=== PATIENT | female | born 1945 | race Caucasian/White ===

== ENCOUNTER 2017-04-18 12:10 | Emergency (ER) | payer MEDICARE, OTHER ==
[2017-04-18] MEDS ORDERED: NS 0.9% 1000 ML* 1,000 ML IV SCH (12:45)
[2017-04-18 12:56] LABS: Hematocrit 39 % (35-47); Hemoglobin 13.3 g/dl (12.0-16.0); Mean Corpuscular HGB Conc 34 g/dl (31-36); Mean Corpuscular Hemoglobin 33 pg (27-31); Mean Corpuscular Volume 97 fL (80-97); Mean Platelet Volume 8 um3 (7.4-10.4); Red Blood Count 4.01 10^6/ul (4.0-5.4); Red Cell Distribution Width 14 % (10.5-15); White Blood Count 6.7 10^3/ul (3.5-10.8)
[2017-04-18 13:12] LABS: Albumin 3.8 g/dL (3.2-5.2); BUN/Creatinine Ratio 12.6 (8-20); C Reactive Protein 3.56 mg/L (< 5.00); Calcium 9.1 mg/dL (8.6-10.3); EGFR African American 67.9 (>60); EGFR Non-African American 52.8 (>60); Globulin 2.8 g/dL (2-4); Magnesium 1.8 mg/dL (1.9-2.7); Potassium 3.6 mmol/L (3.5-5.0); Total Bilirubin 0.5 mg/dL (0.2-1.0); Total Protein 6.6 g/dL (6.4-8.9)
[2017-04-18 13:27] LABS: Urine Bilirubin Negative (Negative); Urine Glucose Negative (Negative); Urine Nitrite Negative (Negative)
--- NOTE | 2017-04-18 13:27 | RAD ---
Indication: Chest pain. Single frontal view of the chest performed at 1253 hours was reviewed. No prior study is available. No mediastinal shift is noted. Heart is of normal size and configuration. Lung siddiqi appear clear. IMPRESSION: NO ACTIVE CARDIOPULMONARY DISEASE IS NOTED.
[2017-04-18] MEDS ORDERED: Aspirin Low Dose CHEW TAB* 81 MG PO ONE (14:00)
[2017-04-18 14:07] LABS: TSH (Thyroid Stimulating Horm) 0.95 mcIU/mL (0.34-5.60)
[2017-04-18] MEDS ORDERED: Albuterol/Ipratropium NEB.SOL* Albuterol 2.5 MG/Ipratropium 0.5 MG 3 ML INH ONE (14:11)
[2017-04-18] MEDS ORDERED: Aspirin TAB* 325 MG PO ONE (14:11)
[2017-04-18] MEDS ORDERED: Magnesium Sulfate 2 GM IV* 2 GM/50 ML BAG IVPB ONE (14:14)
[2017-04-18] MEDS ORDERED: Potassium Chlor TAB* 20 MEQ TAB.ER PO ONE (14:14)
--- NOTE | 2017-04-18 16:03 | ED ---
Tuan Lugo Auryana, scribed for Nichole Valdes MD on 04/18/17 at 1402 . HPI Chest Pain - HPI Summary HPI Summary: 72 year old female chest heaviness starting this morning around 8/9 AM. The pain is located at the center of the chest, and also under the right breast. The chest heaviness is constant but is intermittently worse at a 2/10. She also reports dyspnea - states "not getting enough air", and reports mild dizziness. She denies any recent long travel or any surgeries. She denies any previous episodes. Patient states that she is experiencing increasing stress at home with taking care of her who had a stroke - worried the stress may be affecting her heart. Her sister does state that she has seemed "stuffed up" - patient agrees. She reports that she has had reflux before but this does not feel the same. She does report that with the Celebrex she had abdominal pain- reports occasional pain with empty stomach - none today or related to current issue. STRIKER OFF baby ASA. PMHx is significant for HLD, HTN, fibromylagia, vertigo, squamous cell skin cancer, depression, and panic attacks. No history of any lung problems or GERD. FHx is not significant for any history of early MS, or DVT/PE. SHx is significant for alcohol (about 3 beers/day) , but denies any tobacco use currently - former smoker. She is currently retired and lives with . PCP is Dr. Ni. - History of Current Complaint Chief Complaint: EDChestPainROMI Time Seen by Provider: 04/18/17 13:46 Hx Obtained From: Patient Onset/Duration: Started Hours Ago Time of Onset: 08:00 Timing: Constant, Intermittent - worse Initial Severity: Mild Current Severity: Mild Pain Intensity: 0 Pain Scale Used: 0-10 Numeric Chest Pain Location: Discrete at: - center chest and under the right breast Chest Pain Radiates: No Character: Heaviness Associated Signs and Symptoms: Positive: Chest Pain - heaviness, Dizziness, Shortness of Breath - dyspnea - Allergy/Home Medications Allergies/Adverse Reactions: Allergies Allergy/AdvReac Type Severity Reaction Status Date / Time Sulfa Antibiotics Allergy Unknown Verified 04/18/17 12:32 Reaction Details PMH/Surg Hx/FS Hx/Imm Hx Musculoskeletal History: Denies: Hx Scoliosis Neurological History: Denies: Hx Headaches Infectious Disease History: No Infectious Disease History: Denies: Traveled Outside the [place] in Last 30 Days - Family History Known Family History: Positive: Other - no history of early MS or DVT/PE - Social History Occupation: Retired Lives: With Family - Alcohol Use: Daily Alcohol Amount: 1-2 beers Substance Use Type: Reports: None Smoking Status (MU): Never Smoked Tobacco Review of Systems Positive: Other - dizziness. Negative: Fever Eyes: Negative ENT: Negative Positive: Chest Pain - heaviness Positive: Shortness Of Breath - dyspnea Gastrointestinal: Negative Genitourinary: Negative Positive: no symptoms reported Musculoskeletal: Negative Skin: Negative Neurological: Negative Psychological: Normal All Other Systems Reviewed And Are Negative: Yes Physical Exam - Summary Physical Exam Summary: General: Well appearing, no pain distress Skin: Warm, Skin Color Reflects Adequate Perfusion, Dry Eyes: EOMI, YUN ENT: Pharynx normal, TMs normal Neck: Supple, nontender Respiratory: CTA, breath sounds present, no rhonchi, no wheezes, no rales Cardiovascular: RRR, no murmur, no rub, no gallop Abdomen: Soft, nontender, Non-distended, no guarding, no rebound Bowel: Present Musculoskeletal: JONO, No edema Neuro: Sensory/motor intact, A&Ox3, CN intact 2-12 Psych: Affect/mood appropriate Triage Information Reviewed: Yes Vital Signs On Initial Exam: Initial Vitals Temp Pulse Resp BP Pulse Ox 97.8 F 65 16 166/97 98 04/18/17 12:15 04/18/17 12:15 04/18/17 12:15 04/18/17 12:15 04/18/17 12:15 Vital Signs Reviewed: Yes - [place] Coma Scale Coma Scale Total: 15 Diagnostics - Vital Signs Vital Signs Temp Pulse Resp BP Pulse Ox 04/18/17 12:30 63 19 153/81 97 04/18/17 12:28 62 17 98 04/18/17 12:26 141/88 04/18/17 12:15 97.8 F 65 16 166/97 98 - Laboratory Lab Results: Lab Results 04/18/17 04/18/17 04/18/17 Range/Units 12:45 12:45 12:45 WBC 6.7 (3.5-10.8) 10^3/ul RBC 4.01 (4.0-5.4) 10^6/ul Hgb 13.3 (12.0-16.0) g/dl Hct 39 (35-47) % MCV 97 (80-97) fL MCH 33 H (27-31) pg MCHC 34 (31-36) g/dl RDW 14 (10.5-15) % Plt Count 262 (150-450) 10^3/ul MPV 8 (7.4-10.4) um3 Neut % (Auto) 73.5 (38-83) % Lymph % (Auto) 16.3 L (25-47) % [place] % (Auto) 6.8 (1-9) % Eos % (Auto) 2.4 (0-6) % Baso % (Auto) 1.0 (0-2) % Absolute Neuts (auto) 4.9 (1.5-7.7) 10^3/ul Absolute Lymphs (auto) 1.1 (1.0-4.8) 10^3/ul Absolute Monos (auto) 0.5 (0-0.8) 10^3/ul Absolute Eos (auto) 0.2 (0-0.6) 10^3/ul Absolute Basos (auto) 0.1 (0-0.2) 10^3/ul Absolute Nucleated RBC 0 10^3/ul Nucleated RBC % 0.1 INR (Anticoag Therapy) 0.90 (0.89-1.11) APTT 30.2 (26.0-36.3) seconds D-Dimer, Quantitative < 200 (Less Than 230) ng/mL Sodium 131 L (133-145) mmol/L Potassium 3.6 (3.5-5.0) mmol/L Chloride 103 (101-111) mmol/L Carbon Dioxide 23 (22-32) mmol/L Anion Gap 5 (2-11) mmol/L BUN 13 (6-24) mg/dL Creatinine 1.03 H (0.51-0.95) mg/dL Est GFR ( Amer) 67.9 (>60) Est GFR (Non-Af Amer) 52.8 (>60) BUN/Creatinine Ratio 12.6 (8-20) Glucose 111 H (70-100) mg/dL Lactic Acid (0.5-2.0) mmol/L Calcium 9.1 (8.6-10.3) mg/dL Magnesium 1.8 L (1.9-2.7) mg/dL Total Bilirubin 0.50 (0.2-1.0) mg/dL AST 22 (13-39) U/L ALT 18 (7-52) U/L Alkaline Phosphatase 51 (34-104) U/L Total Creatine Kinase 124 (10-223) U/L CK-MB (CK-2) 2.9 (0.6-6.3) ng/mL Troponin I 0.00 (<0.04) ng/mL C-Reactive Protein 3.56 (< 5.00) mg/L B-Natriuretic Peptide ( - 100) pg/mL Total Protein 6.6 (6.4-8.9) g/dL Albumin 3.8 (3.2-5.2) g/dL Globulin 2.8 (2-4) g/dL Albumin/Globulin Ratio 1.4 (1-3) Lipase 25 (11.0-82.0) U/L TSH Pending Urine Color Urine Appearance Urine pH (5-9) Ur Specific [place] (1.010-1.030) Urine Protein (Negative) Urine Ketones (Negative) Urine Blood (Negative) Urine Nitrate (Negative) Urine Bilirubin (Negative) Urine Urobilinogen (Negative) Ur Leukocyte Esterase (Negative) Urine Glucose (Negative) 04/18/17 04/18/17 04/18/17 Range/Units 12:45 12:45 13:15 WBC (3.5-10.8) 10^3/ul RBC (4.0-5.4) 10^6/ul Hgb (12.0-16.0) g/dl Hct (35-47) % MCV (80-97) fL MCH (27-31) pg MCHC (31-36) g/dl RDW (10.5-15) % Plt Count (150-450) 10^3/ul MPV (7.4-10.4) um3 Neut % (Auto) (38-83) % Lymph % (Auto) (25-47) % [place] % (Auto) (1-9) % Eos % (Auto) (0-6) % Baso % (Auto) (0-2) % Absolute Neuts (auto) (1.5-7.7) 10^3/ul Absolute Lymphs (auto) (1.0-4.8) 10^3/ul Absolute Monos (auto) (0-0.8) 10^3/ul Absolute Eos (auto) (0-0.6) 10^3/ul Absolute Basos (auto) (0-0.2) 10^3/ul Absolute Nucleated RBC 10^3/ul Nucleated RBC % INR (Anticoag Therapy) (0.89-1.11) APTT (26.0-36.3) seconds D-Dimer, Quantitative (Less Than 230) ng/mL Sodium (133-145) mmol/L Potassium (3.5-5.0) mmol/L Chloride (101-111) mmol/L Carbon Dioxide (22-32) mmol/L Anion Gap (2-11) mmol/L BUN (6-24) mg/dL Creatinine (0.51-0.95) mg/dL Est GFR ( Amer) (>60) Est GFR (Non-Af Amer) (>60) BUN/Creatinine Ratio (8-20) Glucose (70-100) mg/dL Lactic Acid 0.9 (0.5-2.0) mmol/L Calcium (8.6-10.3) mg/dL Magnesium (1.9-2.7) mg/dL Total Bilirubin (0.2-1.0) mg/dL AST (13-39) U/L ALT (7-52) U/L Alkaline Phosphatase (34-104) U/L Total Creatine Kinase (10-223) U/L CK-MB (CK-2) (0.6-6.3) ng/mL Troponin I (<0.04) ng/mL C-Reactive Protein (< 5.00) mg/L B-Natriuretic Peptide 89 ( - 100) pg/mL Total Protein (6.4-8.9) g/dL Albumin (3.2-5.2) g/dL Globulin (2-4) g/dL Albumin/Globulin Ratio (1-3) Lipase (11.0-82.0) U/L TSH Urine Color Straw Urine Appearance Clear Urine pH 5.0 (5-9) Ur Specific [place] 1.004 L (1.010-1.030) Urine Protein Negative (Negative) Urine Ketones Negative (Negative) Urine Blood Negative (Negative) Urine Nitrate Negative (Negative) Urine Bilirubin Negative (Negative) Urine Urobilinogen Negative (Negative) Ur Leukocyte Esterase Negative (Negative) Urine Glucose Negative (Negative) Result Diagrams: 04/18/17 12:45 04/18/17 12:45 Lab Statement: Any lab studies that have been ordered have been reviewed, and results considered in the medical decision making process. - Radiology CXR Xray Interpretation: No Acute Changes Radiology Interpretation Completed By: Radiologist - EKG 12:19 EKG Interpretation: NSR @ 66 bpm EKG Comparison: No Significant Change Chest Pain Course/Dx - Course Course Of Treatment: discussion about how she's been feeling and there has been some fullness behind her ears and so a neb was tried with good results. Pt had a 6 hours trop that was neg and a neg ddimer and is aware that she needs to get a stress test she will additionally try the inhaler at home and see if her symptoms resolve completely tm's were normal - Diagnoses Provider Diagnoses: Chest pain of uncertain etiology Discharge - Discharge Plan Condition: Stable Disposition: HOME Patient Education Materials: Chest Pain (ED) Referrals: Eugenia Ni MD [Primary Care Provider] - 2 Days The documentation as recorded by the Tuan pisano Auryana accurately reflects the service I personally performed and the decisions made by me, Nichole Valdes MD.
[2017-04-18] MEDS ORDERED: Albuterol HFA INHALER* 8 gm MDI INH ONE (16:04)
[2017-04-18 16:16] VITALS: BP 140/87
== END 2017-04-18 16:22 | disposition home or self-care (01) ==
LOC: ED 12:10
DX: R07.9 Chest pain, unspecified (principal); R42 Dizziness and giddiness; R06.02 Shortness of breath; R06.00 Dyspnea, unspecified
CPT/HCPCS: 36415; 71010; 80053; 81003; 82550; 82553; 83605; 83690; 83735; 83880; 84443; 84484; 85025; 85379; 85610; 85730; 86140; 93005; 94640; 99283; A9270-GY